=== PATIENT | male | born 1990 | race Caucasian/White ===

== ENCOUNTER 2021-01-14 15:19 | Emergency (ER) | payer SELFPAY ==
[2021-01-14 15:37] VITALS: BP 143/90; PULSE 84; RESP 18; TEMP 36.2; O2SAT 100
--- NOTE | 2021-01-14 17:09 | PC.NURSE ---
Walked out of dept with fast steady gait cursing at staff due to his wait time.
== END 2021-01-14 17:09 | disposition left against medical advice (07) ==
DX: M54.9 Dorsalgia, unspecified (principal)
CPT/HCPCS: 99199